=== PATIENT | female | born 1965 | race African-American/Black ===

== ENCOUNTER 2016-05-16 09:27 | Emergency (ER) | payer OTHER ==
[2016-05-16 09:52] VITALS: BP 132/86; PULSE 86; TEMP 97.9; BMI 30.1
[2016-05-16] MEDS: ALBUTEROL SO4 2.5/IPRATROPIUM 0.5 INH SOL 3 ML VIAL.NEB. NEB SCH ×3 (11:00→11:53)
[2016-05-16] MEDS ORDERED: predniSONE 20 MG TABLET (UD) PO ONE (12:14)
[2016-05-16] MEDS ORDERED: predniSONE 20 MG TABLET (UD) ONE (12:18)
--- NOTE | 2016-05-16 12:48 | PDOC ---
History of Present Illness - General Chief Complaint: Asthma Stated Complaint: SOB Time Seen by Provider: 05/16/16 10:42 History Source: Patient Exam Limitations: No Limitations - History of Present Illness Initial Comments: 05/16/16 12:42 51 yr female with c/o asthma attack. no history of intubations or hospitalizations. . non smoker. Pt states the weather change has brought on her asthma. 05/16/16 17:02 Past History - Past Medical History Allergies/Adverse Reactions: Allergies Allergy/AdvReac Type Severity Reaction Status Date / Time codeine [Codeine] Allergy Hives Verified 05/16/16 09:48 Home Medications: Ambulatory Orders Salmeterol/Fluticasone [Advair 250Mcg/50Mcg -] 1 inh PO BID 12/16/11 Albuterol Sulfate [Proair Hfa -] 2 inh PO PRN PRN #0 hfa.aer.ad 06/21/13 Albuterol 2.5/Ipratropium 0.5 [Duoneb -] 1 amp NEB Q15M #30 amp 05/16/16 Albuterol Sulfate Inhaler - [Ventolin Hfa Inhaler -] 1 - 2 inh PO Q4H #1 inhaler 05/16/16 Prednisone [Deltasone -] 40 mg PO DAILY #10 tablet 05/16/16 Anemia: Yes Asthma: Yes Cancer: No Cardiac Disorders: No CVA: No COPD: No CHF: No Dementia: No Diabetes: No GI Disorders: No Disorders: No HTN: No Hypercholesterolemia: No Liver Disease: No Seizures: No Thyroid Disease: No - Surgical History Abdominal Surgery: Yes (lt ovary cyst) Appendectomy: No Cardiac Surgery: No Cholecystectomy: No Lung Surgery: No Neurologic Surgery: Yes (neck surgery) Orthopedic Surgery: No - Immunization History Immunization Up to Date: Yes - Psycho/Social/Smoking Cessation Hx Anxiety: No Suicidal Ideation: No Smoking Status: No Smoking History: Never smoked Have you smoked in the past 12 months: No Number of Cigarettes Smoked Daily: 0 Cigars Per Day: 0 Information on smoking cessation initiated: No Hx Alcohol Use: No Drug/Substance Use Hx: No Substance Use Type: None Hx Substance Use Treatment: No Respiratory Specific PMHX - Complaint Specific PMHX Bronchitis: Yes Review of Systems - Review of Systems Able to Perform ROS?: Yes Is the patient limited Barbadian proficient: No Constitutional: No: Symptoms Reported HEENTM: No: Symptoms Reported Respiratory: Yes: Symptoms reported, See HPI, Cough Cardiac (ROS): No: Symptoms Reported ABD/GI: No: Symptoms Reported : No: Symptoms Reported Musculoskeletal: No: Symptoms Reported Integumentary: No: Symptoms Reported Neurological: No: Symptoms reported *Physical Exam - Vital Signs Last Vital Signs Temp Pulse Resp BP Pulse Ox 97.9 F 86 18 132/86 100 05/16/16 09:49 05/16/16 09:49 05/16/16 09:49 05/16/16 09:49 05/16/16 09:49 - Physical Exam General Appearance: Yes: Nourished, Appropriately Dressed HEENT: positive: EOMI, MARIJA, Normal ENT Inspection, TMs Normal, Pharynx Normal Neck: positive: Supple. negative: Tender Respiratory/Chest: positive: Lungs Clear, Normal Breath Sounds, Wheezing. negative: Chest Tender Cardiovascular: positive: Regular Rhythm, Regular Rate Gastrointestinal/Abdominal: positive: Normal Bowel Sounds, Soft Musculoskeletal: positive: Normal Inspection Extremity: positive: Normal Capillary Refill, Normal Inspection, Normal Range of Motion Integumentary: positive: Normal Color, Dry, Warm Neurologic: positive: Fully Oriented, Alert, Normal Mood/Affect, Normal Response , Motor Strength 5/5 ED Treatment Course - Medications Given in the ED: ED Medications Discontinued Medications Generic Name Dose Route Start Last Admin Trade Name Freq PRN Reason Stop Dose Admin Albuterol/Ipratropium 1 amp 05/16/16 11:00 05/16/16 11:53 Duoneb - NEB 05/16/16 11:31 1 amp Q15M [place] Administration Prednisone 60 mg 05/16/16 12:14 05/16/16 12:16 Deltasone - PO 05/16/16 12:15 60 mg ONCE ONE Administration Medical Decision Making - Medical Decision Making 05/16/16 17:03 cc: asthma attack wheezing speaking full sentences no distress wheezing expiratory *DC/Admit/Observation/Transfer Diagnosis at time of Disposition: Asthma, moderate - Discharge Dispostion Disposition: HOME Condition at time of disposition: Improved - Prescriptions Prescriptions: Prednisone [Deltasone -] 40 mg PO DAILY #10 tablet Albuterol 2.5/Ipratropium 0.5 [Duoneb -] 1 amp NEB Q15M #30 amp Albuterol Sulfate Inhaler - [Ventolin Hfa Inhaler -] 1 - 2 inh PO Q4H #1 inhaler - Referrals Referrals: Radha Sheehan MD [Primary Care Provider] - - Patient Instructions Additional Instructions: drink pleanty of fluids to stay hydrated follow with your doctor in 2-3 days next dose of prednisone tomorrow morning - Post Discharge Activity Work/School Note: Back to Work
== END 2016-05-16 12:55 | disposition home or self-care (01) ==
LOC: JERFT 09:27
PROC: 3E0F7GC Introduction of Other Therapeutic Substance into Respiratory Tract, Via Natural or Artificial Opening (ICD-10-PCS; principal; 2016-05-16)
DX: J45.41 Moderate persistent asthma with (acute) exacerbation (principal)
CPT/HCPCS: 94640; 99281-25

== ENCOUNTER 2017-05-19 10:43 | Emergency (ER) | payer OTHER ==
[2017-05-19 11:52] VITALS: BP 125/71; PULSE 88; TEMP 98.3; BMI 33.8
== END 2017-05-19 18:11 | disposition left against medical advice (07) ==
LOC: JER 10:43
DX: Z53.21 Procedure and treatment not carried out due to patient leaving prior to being seen by health care provider (principal)
CPT/HCPCS: 99281-25

== ENCOUNTER 2017-07-12 20:49 | Emergency (ER) | payer OTHER ==
[2017-07-12 20:55] VITALS: BMI 33.5
[2017-07-12] MEDS ORDERED: diazePAM 5 MG TABLET PO ONE (21:48)
[2017-07-12] MEDS ORDERED: IBUPROFEN 600 MG TABLET (FP) PO ONE ×2 (21:48→21:55)
--- NOTE | 2017-07-12 21:48 | PDOC ---
History of Present Illness - General Chief Complaint: Pain Stated Complaint: NECK PAIN Time Seen by Provider: 07/12/17 21:04 History Source: Patient - History of Present Illness Initial Comments: 07/12/17 21:49 52 year old female c/o left sided neck pain worse with movement x1 day.patient unsure of straining muscle. denies trauma/ injury. No cervical tenderness. no numbness of tingling to the arms. no breathing difficulty reported . patient reports pain relief with ibuprofen at home. History of cervical spinal surgery Past History - Past Medical History Allergies/Adverse Reactions: Allergies Allergy/AdvReac Type Severity Reaction Status Date / Time codeine [Codeine] Allergy Hives Verified 07/12/17 20:52 Home Medications: Ambulatory Orders Salmeterol/Fluticasone [Advair 250Mcg/50Mcg -] 1 inh PO BID 12/16/11 Albuterol Sulfate [Proair Hfa -] 2 inh PO PRN PRN #0 hfa.aer.ad 06/21/13 Albuterol 2.5/Ipratropium 0.5 [Duoneb -] 1 amp NEB Q15M #30 amp 05/16/16 Albuterol Sulfate Inhaler - [Ventolin Hfa Inhaler -] 1 - 2 inh PO Q4H #1 inhaler 05/16/16 Cyclobenzaprine HCl [Flexeril -] 10 mg PO TID PRN #21 tablet 07/12/17 Anemia: Yes Asthma: Yes Cancer: No Cardiac Disorders: No CVA: No COPD: Yes CHF: No Dementia: No Diabetes: No GI Disorders: No Disorders: No HTN: No Hypercholesterolemia: No Liver Disease: No Seizures: No Thyroid Disease: No - Surgical History Abdominal Surgery: Yes (lt ovary cyst) Appendectomy: No Cardiac Surgery: No Cholecystectomy: No Lung Surgery: No Neurologic Surgery: Yes (neck surgery) Orthopedic Surgery: No - Immunization History Immunization Up to Date: Yes - Suicide/Smoking/Psychosocial Hx Smoking Status: No Smoking History: Never smoked Have you smoked in the past 12 months: No Number of Cigarettes Smoked Daily: 0 Cigars Per Day: 0 Hx Alcohol Use: No Drug/Substance Use Hx: No Substance Use Type: None Hx Substance Use Treatment: No *Physical Exam - Vital Signs Last Vital Signs Temp Pulse Resp BP Pulse Ox 98.1 F 99 H 18 149/76 99 07/12/17 20:54 07/12/17 20:54 07/12/17 20:54 07/12/17 20:54 07/12/17 20:54 - Physical Exam General Appearance: Yes: Appropriately Dressed Neck: positive: Tender lateral (right ). negative: Lymphadenopathy (R), Lymphadenopathy (L) Respiratory/Chest: positive: Lungs Clear, Normal Breath Sounds Cardiovascular: positive: Regular Rhythm, Regular Rate Vascular Pulses: Carotid (R): 2+, Carotid (L): 2+ Extremity: positive: Normal Capillary Refill, Normal Inspection, Normal Range of Motion Integumentary: positive: Normal Color, Dry, Warm Neurologic: positive: Fully Oriented, Alert, Normal Mood/Affect Medical Decision Making - Medical Decision Making 07/12/17 21:54 Neck strain P: Muscle relaxer NSAID Ibuprofen *DC/Admit/Observation/Transfer Diagnosis at time of Disposition: Neck muscle spasm - Discharge Dispostion Disposition: HOME - Prescriptions Prescriptions: Cyclobenzaprine HCl [Flexeril -] 10 mg PO TID PRN #21 tablet PRN Reason: Muscle Spasms - Referrals Referrals: Loraine Simms [Primary Care Provider] - - Patient Instructions Printed Discharge Instructions: Muscle Strain Additional Instructions: take ibuprofen every 6 hours with food as needed for pain. take flexeril as prescribed. follow up with your doctor as soon as possible. return to the ER if symptoms worsen. - Post Discharge Activity
[2017-07-12] MEDS ORDERED: diazePAM 5 MG TABLET ONE (21:56)
--- NOTE | 2017-07-12 23:06 | PDOC ---
*Physical Exam - Vital Signs Last Vital Signs Temp Pulse Resp BP Pulse Ox 98.1 F 99 H 18 149/76 99 07/12/17 20:54 07/12/17 20:54 07/12/17 20:54 07/12/17 20:54 07/12/17 20:54 ED Treatment Course - Medications Given in the ED: ED Medications Discontinued Medications Generic Name Dose Route Start Last Admin Trade Name Freq PRN Reason Stop Dose Admin Diazepam 5 mg 07/12/17 21:48 07/12/17 22:00 Valium - PO 07/12/17 21:49 5 mg ONCE ONE Administration Ibuprofen 600 mg 07/12/17 21:48 07/12/17 22:00 Motrin - PO 07/12/17 21:49 600 mg ONCE ONE Administration Medical Decision Making - Medical Decision Making 07/12/17 23:06 agree with care from DESTIN Jennings *DC/Admit/Observation/Transfer Diagnosis at time of Disposition: Neck muscle spasm - Discharge Dispostion Disposition: HOME - Prescriptions Prescriptions: Cyclobenzaprine HCl [Flexeril -] 10 mg PO TID PRN #21 tablet PRN Reason: Muscle Spasms - Referrals Referrals: Loraine Simms [Primary Care Provider] - - Patient Instructions Printed Discharge Instructions: Muscle Strain Additional Instructions: take ibuprofen every 6 hours with food as needed for pain. take flexeril as prescribed. follow up with your doctor as soon as possible. return to the ER if symptoms worsen. - Post Discharge Activity
[2017-07-12 23:24] VITALS: BP 140/70; PULSE 86; TEMP 98
== END 2017-07-12 23:15 | disposition home or self-care (01) ==
LOC: JERFT 20:49 → JER 20:49
DX: M62.838 Other muscle spasm (principal); J44.9 Chronic obstructive pulmonary disease, unspecified
CPT/HCPCS: 99282-25

== ENCOUNTER 2018-02-05 09:55 | Emergency (ER) | payer SELFPAY ==
[2018-02-05 09:59] VITALS: BP 115/59; PULSE 82; TEMP 98.6; BMI 33.6
[2018-02-05] MEDS ORDERED: KETOROLAC TROMETHAMINE 60 MG/2 ML VIAL IM ONE (11:25)
--- NOTE | 2018-02-05 11:25 | PDOC ---
History of Present Illness - General Chief Complaint: Back Pain Stated Complaint: BACK PAIN Time Seen by Provider: 02/05/18 11:14 History Source: Patient, Family Exam Limitations: No Limitations - History of Present Illness Initial Comments: 02/05/18 11:29 Patient came for persistent low back pain. Has been seen in the past for same, and has also had a cervical fusion for disc disease of cervical spine 6 years ago. 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 the causes significant trouble to her low back and this spasm with radiating pain to the anterior aspect of left thigh Occurred: reports: yesterday Severity: reports: mild, moderate Pain Location: reports: back Modifying Factors: improves with: None Loss of Consciousness: no loss of consciousness Associated Symptoms (Fall): denies symptoms Past History - Travel Traveled outside of the country in the last 30 days: No Close contact w/someone who was outside of country & ill: No - Past Medical History Allergies/Adverse Reactions: Allergies Allergy/AdvReac Type Severity Reaction Status Date / Time codeine [Codeine] Allergy Hives Verified 02/05/18 09:56 Home Medications: Ambulatory Orders Salmeterol/Fluticasone [Advair 250Mcg/50Mcg -] 1 inh PO BID 12/16/11 Albuterol Sulfate [Proair Hfa -] 2 inh PO PRN PRN #0 hfa.aer.ad 06/21/13 Cyclobenzaprine HCl 10 mg PO Q8H PRN #14 tablet 02/05/18 Metformin HCl [Glucophage] 500 mg PO DAILY 02/05/18 Naproxen [Naprosyn -] 500 mg PO BID #30 tablet 02/05/18 Anemia: Yes Asthma: Yes Cancer: No Cardiac Disorders: No CVA: No COPD: Yes CHF: No Dementia: No Diabetes: No GI Disorders: No Disorders: No HTN: No Hypercholesterolemia: No Liver Disease: No Seizures: No Thyroid Disease: No - Surgical History Abdominal Surgery: Yes (lt ovary cyst) Appendectomy: No Cardiac Surgery: No Cholecystectomy: No Lung Surgery: No Neurologic Surgery: Yes (neck surgery) Orthopedic Surgery: No - Immunization History Immunization Up to Date: Yes - Suicide/Smoking/Psychosocial Hx Smoking Status: No Smoking History: Never smoked Have you smoked in the past 12 months: No Number of Cigarettes Smoked Daily: 0 Cigars Per Day: 0 Information on smoking cessation initiated: No Hx Alcohol Use: No Drug/Substance Use Hx: No Substance Use Type: None Hx Substance Use Treatment: No Review of Systems - Review of Systems Able to Perform ROS?: Yes Is the patient limited Romansh proficient: Yes Constitutional: Yes: Symptoms Reported, See HPI, Malaise Respiratory: Yes: Symptoms reported Musculoskeletal: Yes: Symptoms Reported, See HPI, Back Pain, Muscle Pain Integumentary: Yes: See HPI. No: Symptoms Reported All Other Systems: Reviewed and Negative *Physical Exam - Vital Signs Last Vital Signs Temp Pulse Resp BP Pulse Ox 98.6 F 82 18 115/59 L 100 02/05/18 09:57 02/05/18 09:57 02/05/18 09:57 02/05/18 09:57 02/05/18 09:57 - Physical Exam General Appearance: Yes: Nourished, Appropriately Dressed, Apparent Distress, Mild Distress HEENT: positive: EOMI, MARIJA, Normal ENT Inspection, TMs Normal, Pharynx Normal Neck: positive: Tender, Supple Respiratory/Chest: positive: Lungs Clear Gastrointestinal/Abdominal: positive: Soft. negative: Tender Musculoskeletal: positive: Normal Inspection, Muscle Spasm (tight tender musculature to the lower paravertebral spinous area, no truce spine pain, no crepitus or step-offs.). 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, Fully Oriented, Alert, Normal Mood/ Affect, Normal Response, Motor Strength 5/5 Progress Note - Progress Note Progress Note: Back strain, we'll treat with NSAIDs and cyclobenzaprine *DC/Admit/Observation/Transfer Diagnosis at time of Disposition: Low back strain Qualifiers: Encounter type: initial encounter Qualified Code(s): S39.012A - Strain of muscle, fascia and tendon of lower back, initial encounter - Discharge Dispostion Disposition: HOME Condition at time of disposition: Stable Decision to Admit order: No - Referrals Referrals: Carmen Loredo MD [Primary Care Provider] - - Patient Instructions Printed Discharge Instructions: DI for Low Back Pain Additional Instructions: Rest, no heavy lifting or exercise until pain is resolved Hot soaks to neck and low back as often as possible/hot showers or Jacuzzis No massage or therapy until spasm is gone Continue Naprosyn 500 mg tablet, 1 tablet every 12 hours for the next 3 days then as needed for pain and swelling Cyclobenzaprine 1-10mg every 8 hours as needed for spasm If not significant improvement within 24 hours with medication and rest regime, followup with private physician for change in medications and /or therapy. - Post Discharge Activity Forms/Work/School Notes: Back to Work
[2018-02-05] MEDS ORDERED: KETOROLAC TROMETHAMINE 60 MG/2 ML VIAL ONE (11:29)
== END 2018-02-05 11:40 | disposition home or self-care (01) ==
LOC: JERFT 09:55
PROC: 3E0233Z Introduction of Anti-inflammatory into Muscle, Percutaneous Approach (ICD-10-PCS; principal; 2018-02-05)
DX: S39.012A Strain of muscle, fascia and tendon of lower back, initial encounter (principal); M62.830 Muscle spasm of back; X50.1XXA Overexertion from prolonged static or awkward postures, initial encounter; Y93.89 Activity, other specified; Y92.89 Other specified places as the place of occurrence of the external cause; Y99.8 Other external cause status; J44.9 Chronic obstructive pulmonary disease, unspecified; J45.909 Unspecified asthma, uncomplicated
CPT/HCPCS: 99281-25

== ENCOUNTER 2018-04-14 11:22 | Emergency (ER) | payer SELFPAY ==
[2018-04-14 11:29] VITALS: BP 128/75; PULSE 104; TEMP 98.1; BMI 32.9
--- NOTE | 2018-04-14 12:09 | PDOC ---
History of Present Illness - General Chief Complaint: Abscess Boil Stated Complaint: ABSCESS BOIL Time Seen by Provider: 04/14/18 11:44 History Source: Patient Exam Limitations: No Limitations - History of Present Illness Initial Comments: 04/14/18 12:04 53-year-old female with history of diabetes presents to the ED with 4 day history of a painful red swollen lump to the back of her neck that is now causing soreness and mild neck stiffness. Patient states BGM this morning was 181 and denies any fever or chills. Patient states similar about 4 years ago that she was able to manage with warm soaks and no medical intervention. Patient states attempted warm soaks for the past 2 days and had noted it to worsen today and so decided come to the ER. Timing/Duration: getting worse Severity: moderate Associated Symptoms: reports: other Past History - Travel Traveled outside of the country in the last 30 days: No - Past Medical History Allergies/Adverse Reactions: Allergies Allergy/AdvReac Type Severity Reaction Status Date / Time codeine [Codeine] Allergy Hives Verified 04/14/18 11:28 Home Medications: Ambulatory Orders NK [No Known Home Medication] 04/14/18 Anemia: Yes Asthma: Yes Cancer: No Cardiac Disorders: No CVA: No COPD: Yes CHF: No Dementia: No Diabetes: Yes (niddm) GI Disorders: No Disorders: No HTN: No Hypercholesterolemia: No Liver Disease: No Seizures: No Thyroid Disease: No - Surgical History Abdominal Surgery: Yes (lt ovary cyst) Appendectomy: No Cardiac Surgery: No Cholecystectomy: No Lung Surgery: No Neurologic Surgery: Yes (neck surgery) Orthopedic Surgery: No - Immunization History Immunization Up to Date: Yes - Suicide/Smoking/Psychosocial Hx Smoking Status: No Smoking History: Never smoked Have you smoked in the past 12 months: No Number of Cigarettes Smoked Daily: 0 Cigars Per Day: 0 Hx Alcohol Use: No Drug/Substance Use Hx: No Substance Use Type: None Hx Substance Use Treatment: No Patient Lives Alone: No Lives with/in: spouse/SO Review of Systems - Review of Systems Able to Perform ROS?: Yes Constitutional: No: Symptoms Reported HEENTM: No: Symptoms Reported Respiratory: No: Symptoms reported Cardiac (ROS): No: Symptoms Reported ABD/GI: No: Symptoms Reported : No: Symptoms Reported Musculoskeletal: Yes: Muscle Pain Integumentary: Yes: Erythema, Lumps Neurological: No: Symptoms reported Endocrine: No: Symptoms Reported *Physical Exam - Vital Signs Last Vital Signs Temp Pulse Resp BP Pulse Ox 98.1 F 104 H 20 128/75 97 04/14/18 11:24 04/14/18 11:24 04/14/18 11:24 04/14/18 11:24 04/14/18 11:24 - Physical Exam General Appearance: Yes: Nourished, Appropriately Dressed. No: Apparent Distress Neck: positive: Supple. negative: Lymphadenopathy (R), Lymphadenopathy (L), Rigidity Respiratory/Chest: positive: Lungs Clear, Normal Breath Sounds. negative: Chest Tender, Respiratory Distress, Accessory Muscle Use Cardiovascular: positive: Regular Rhythm, Tachycardia. negative: Murmur Extremity: positive: Normal Capillary Refill. negative: Pedal Edema Integumentary: positive: Other (Noted 4 x 4 cm erythematous fluctuant mass to the base of her neck over C6-C7 with mild erythema surrounding mass. ) Neurologic: positive: Motor Strength 5/5 (ambulatory) Moderate Sedation - Procedure Monitoring Vital Signs: Procedure Monitoring Vital Signs Temperature 98.1 F 04/14/18 11:24 Pulse Rate 104 H 04/14/18 11:24 Respiratory Rate 20 04/14/18 11:24 Blood Pressure 128/75 04/14/18 11:24 O2 Sat by Pulse Oximetry (%) 97 04/14/18 11:24 Procedures - Incision and Drainage I&D Site: Bilateral: Other Betadine cleansed: Yes Anesthesia: 1% Lidocaine Volume(ml): 2 Blade Size: 11 Attempts: 2 Iodinated Packin/2 in Complications: none Dressing: Yes ED Treatment Course - LABORATORY CBC & Chemistry Diagram: 04/14/18 12:11 04/14/18 12:11 - RADIOLOGY Radiology Studies Ordered: Category Date Time Status SOFT TISSUE NECK CT WITH CONTR [CT] Stat CT Scan 04/14/18 11:48 Ordered Medical Decision Making - Medical Decision Making 04/14/18 12:00 Chief complaint: Tender red mass in posterior neck. Patient with history of diabetes no fever no history of MRSA Exam: Fluctuant abscess over C6-C7 patient tachycardic Plan: Patient concerning for sepsis and electrolyte derangement. Patient also concerning for deep tissue abscess/spinal involvement. Patient ordered for CBC, comp, lactic acid, CT of the soft tissue neck with contrast 04/14/18 13:08 Laboratory Tests 04/14/18 12:11 Lactic Acid 1.3 04/14/18 13:08 Laboratory Tests 04/14/18 12:11 WBC 7.2 Hgb 14.4 Hct 41.3 Plt Count 206 Absolute Neuts (auto) 4.0 04/14/18 13:43 Laboratory Tests 04/14/18 12:11 Sodium 139 Potassium 4.3 Chloride 104 Carbon Dioxide 29 Anion Gap 6 L BUN 9 Creatinine 0.9 Random Glucose 161 H Calcium 9.2 Total Bilirubin 0.6 AST 25 ALT 45 Alkaline Phosphatase 88 Total Protein 7.9 Albumin 3.9 04/14/18 16:29 CT of the tests CT of the soft tissue neck shows a fluid collection measuring 2.8 x 2.2 x 2.2 with internal foci of air with mild adjacent inflammatory changes seen. There is no involvement of the muscles of the posterior neck. 04/14/18 16:49 IND done with packing placed. Patient to return in 2 days for wound check. Patient will likely benefit from a surgical consult. Patient given antibiotics while culture sent *DC/Admit/Observation/Transfer Diagnosis at time of Disposition: Infected sebaceous cyst - Discharge Dispostion Disposition: HOME Condition at time of disposition: Good - Referrals Referrals: Jovani Means MD [Primary Care Provider] - Gabino Spears MD [Staff Physician] - - Patient Instructions Printed Discharge Instructions: DI for Incision and Drainage of a Skin Abscess Additional Instructions: Please take antibiotics as prescribed. Please return here for a wound check in 2 days. You will likely benefit from a surgical consult which is enclosed. Please apply warm soaks as much as you can tolerate for the next 72 hours to promote drainage - Post Discharge Activity
[2018-04-14 12:39] LABS: BASO % 0.4 % (0-2.0); EOS % 3.7 % (0-4.5); HEMATOCRIT 41.3 % (32.4-45.2); HEMOGLOBIN 14.4 GM/dL (10.7-15.3); LYMPH % 28.7 % (8-40); MCH 30.3 pg (25.7-33.7); MCHC 34.8 g/dl (32.0-36.0); MEAN CELL VOLUME 86.9 fl (80-96); MEAN PLT VOLUME 9.4 fl (7.5-11.1); MONO % 11.2 % (3.8-10.2); PLATELET COUNT 206 K/MM3 (134-434); RBC 4.75 M/mm3 (3.60-5.2); RDW 13.5 % (11.6-15.6); WHITE BLOOD COUNT 7.2 K/mm3 (4.0-10.0)
[2018-04-14 13:21] LABS: ALBUMIN 3.9 g/dl (3.4-5.0); ALK PHOS 88 U/L (45-117); ANION GAP 6 MMOL/L (8-16); BILIRUBIN,TOTAL 0.6 mg/dL (0.2-1); BLOOD UREA NITROGEN 9 mg/dL (7-18); CALCIUM 9.2 mg/dL (8.5-10.1); CHLORIDE 104 mmol/L (98-107); CO2 29 mmol/L (21-32); CREATININE 0.9 mg/dL (0.55-1.3); GLUCOSE,RANDOM 161 mg/dL (74-106); POTASSIUM 4.3 mmol/L (3.5-5.1); SGOT/AST 25 U/L (15-37); SGPT/ALT 45 U/L (13-61); SODIUM 139 mmol/L (136-145); TOT PROT 7.9 g/dl (6.4-8.2)
== END 2018-04-14 16:58 | disposition home or self-care (01) ==
LOC: JERFT 11:22
PROC: 0HQ6XZZ Repair Back Skin, External Approach (ICD-10-PCS; principal; 2018-04-14)
PROC: 0H96XZZ Drainage of Back Skin, External Approach (ICD-10-PCS; 2018-04-14)
DX: L02.212 Cutaneous abscess of back [any part, except buttock and flank] (principal)
CPT/HCPCS: 36415; 70491-TC; 80053; 83605; 85025; 87070; 87205; 99283-25

== ENCOUNTER 2019-06-03 11:23 | Day surgery (SDC) | payer OTHER ==
[2019-05-30 17:51] VITALS: BMI 31.8
--- NOTE | 2019-06-03 12:51 | HP ---
History & Physical Update - History History: No Change - Physical Physical: No Change - Assessment Assessment: No Change - Plan Plan: No Change
[2019-06-03] MEDS ORDERED: MIDAZOLAM HCL 2 MG/2 ML SINGLE DOSE VIAL ONE (13:11)
[2019-06-03] MEDS ORDERED: LIDOCAINE HCL/PF 2% SDV 5ML VIAL ONE (13:12)
[2019-06-03] MEDS ORDERED: DEXAMETHASONE SOD PHOSPHATE 4 MG/1 ML VIAL ONE (13:12)
[2019-06-03] MEDS ORDERED: KETOROLAC TROMETHAMINE 30 MG/1 ML VIAL ONE (13:12)
[2019-06-03] MEDS ORDERED: PROPOFOL 20 ML ONE (13:13)
--- NOTE | 2019-06-03 14:37 | OP ---
Operative Note - Note: Operative Date: 06/03/19 (dic # [id number]) Pre-Operative Diagnosis: AUB Operation: Diagnostic hysteroscopy, polypectomy, EM curettage Findings: see dictation Implants: none Post-Operative Diagnosis: Same as Pre-op Surgeon: Jase Grace Anesthesia: MAC Specimens Removed: EM polyps, EM curetting Estimated Blood Loss (mls): 5 (minimal) Drains, Volume Out (mls): 300 (fluid deficit)
[2019-06-03] MEDS ORDERED: ONDANSETRON 4 MG/2 ML VIAL IVPUSH PRN (15:45)
[2019-06-03] MEDS ORDERED: LACTATED RINGERS SOLUTION 1,000 ML IV SCH (15:45)
[2019-06-03 18:28] VITALS: TEMP 98
[2019-06-03 18:31] VITALS: BP 126/68; PULSE 82
--- NOTE | 2019-06-04 09:08 | OP ---
DATE OF OPERATION: 06/03/2019 PREOPERATIVE DIAGNOSIS: Abnormal uterine bleeding, suspect endometrial polyp. POSTOPERATIVE DIAGNOSIS: Abnormal uterine bleeding, suspect endometrial polyp. PROCEDURE: Diagnostic hysteroscopy, polypectomy, endometrial curettage. SURGEON: Hardeep Armendariz MD ANESTHESIA: MAC. INTRAVENOUS FLUIDS: Per anesthesia. URINE OUTPUT: None. ESTIMATED BLOOD LOSS: Minimal. FLUID DEFICIT: 300 mL. FINDINGS: Atrophic external genitalia and vaginal mucosa. Cervix short, slightly dilated. Endocervical canal consistent with normal anatomy. The endometrial finding was 3 moderate-sized polyps encountered anteriorly and posterior fibroid slightly impinging into the endometrial cavity, approximately 3 x 3 cm. PROCEDURE: The patient was taken to the operating room where anesthesia was found to be adequate. She was then prepped and draped in the normal sterile fashion. Appropriate timeout took place. Metal retractors were utilized to visualize the anterior aspect of the cervix which was grasped with a Flor tenaculum. The cervix slightly dilated to accommodate the hysteroscope. The hysteroscope was advanced to the fundus. Previously mentioned findings noted. The resectoscope was assembled. Polypectomy under constant visualization took place without difficulty. Following this the resectoscope was removed and systematic curetting of the endometrial cavity took place. Specimen sent to Pathology. Secondary inspection with the resectoscope revealed adequate procedure. It is to be noted that the posterior fibroid was slightly shaved off with the resectoscope at its impinging aspect into the endometrial cavity. All instruments were retrieved from the vagina. No active bleeding was noted from the os nor the tenaculum site. Procedure was concluded. Patient in stable condition. All instrument counts were reported as correct x2 by the staff. HARDEEP ARMENDARIZ MD [id number] MTDD
--- NOTE | 2019-06-05 17:52 | PATH ---
Surgical Pathology Report Patient Name: LEON ROBLEDO [facility]. Rec. #: [id number] /Age/Gender: 1965 (Age: 54) / F Account: [id number] Location: [facility] SURGICAL Taken: 06/03/2019 Received: 06/04/2019 Reported: 06/05/2019 Physicians: Jase Grace MD Specimen(s) Received A: ENDOMETRIAL POLYP B: ENDOMETRIAL CURETTINGS Clinical History Endometrial polyp Final Diagnosis A. ENDOMETRIAL POLYP, EXCISION: FRAGMENTS OF ENDOMETRIAL POLYP. SQUAMOUS EPITHELIUM WITH NO SIGNIFICANT PATHOLOGIC CHANGE. B. ENDOMETRIAL CURETTINGS: FRAGMENT OF ENDOMETRIAL POLYP. SEPARATE WEAKLY PROLIFERATIVE ENDOMETRIUM. SEPARATE ENDOCERVICAL GLANDS AND SQUAMOUS EPITHELIUM WITH NO SIGNIFICANT PATHOLOGIC CHANGE. Electronically Signed Nadeem Jackson M.D. Gross Description A. Received in formalin labeled "endometrial polyp," is a 1.7 x 1.4 x 0.2 cm aggregate of lopez soft tissue fragments admixed with blood clot. The formalin is filtered and the specimen is entirely submitted in one cassette. B. Received in formalin labeled "endometrial curettings," is a 2.0 x 1.5 x 0.3 cm aggregate of lopez-brown soft tissue fragments admixed with mucus. The formalin is filtered and the specimen is entirely submitted in one cassette. 06/04/2019 [facility]06/04/2019
== END 2019-06-03 17:35 | disposition home or self-care (01) ==
LOC: JASU-SURG 11:23
PROVIDERS: ATTEND Student in an Organized Health Care Education/Training Program
PROC: 0UDB7ZX Extraction of Endometrium, Via Natural or Artificial Opening, Diagnostic (ICD-10-PCS; 2019-06-03)
PROC: 0UJD8ZZ Inspection of Uterus and Cervix, Via Natural or Artificial Opening Endoscopic (ICD-10-PCS; 2019-06-03)
PROC: 0UB97ZX Excision of Uterus, Via Natural or Artificial Opening, Diagnostic (ICD-10-PCS; principal; 2019-06-03 13:00)
DX: N93.9 Abnormal uterine and vaginal bleeding, unspecified (principal); N84.0 Polyp of corpus uteri
CPT/HCPCS: 36415; 82962; 84703; 86850; 86900; 86901; 88305-TC; 94760

== ENCOUNTER 2020-01-03 21:37 | Emergency (ER) | payer OTHER ==
[2020-01-03 22:05] VITALS: BP 130/73; PULSE 83; TEMP 98; BMI 31.6
--- NOTE | 2020-01-03 22:40 | PDOC ---
History of Present Illness - General Chief Complaint: Injury Stated Complaint: NUMBNESS LH FINGERS Time Seen by Provider: 01/03/20 22:15 History Source: Patient Exam Limitations: No Limitations - History of Present Illness Initial Comments: 01/03/20 22:52 HISTORY OF PRESENT ILLNESS: 54-year-old woman with past medical history of diabetes, cervical spinal fusion who presents emergency department for evaluation of left elbow pain shooting to the fourth and fifth fingers of her left hand. Patient reports pain was sudden onset and intermittent over the past 2 to 3 weeks but is been consistent for the past 3 days. Patient denies any trauma, fevers, chills, decreased range of motion. Patient is right-hand dominant. No recent travel or sick contacts. PAST MEDICAL HISTORY: See HPI SURGICAL HISTORY: Denies ALLERGIES: Codeine REVIEW OF SYSTEMS General/Constitutional: Denies fever or chills. Denies weakness, weight change. HEENT: Denies change in vision. Denies ear pain or discharge. Denies sore throat. Cardiovascular: Denies chest pain or shortness of breath. Respiratory: Denies cough, wheezing, or hemoptysis. Gastrointestinal: Denies nausea, vomiting, diarrhea or constipation. Denies rectal bleeding. Genitourinary: Denies dysuria, frequency, or change in urination. Musculoskeletal: Denies joint or muscle swelling or pain. Denies neck or back pain. Skin and breasts: Denies rash or easy bruising. Neurologic: See HPI Psychiatric: Denies depression or anxiety. Endocrine: Denies increased thirst. Denies abnormal weight change. Hematologic/Lymphatic: Denies anemia, easy bleeding, or history of blood clots. Allergic/Immunologic: Denies hives or skin allergy. Denies latex allergy. PHYSICAL EXAM General Appearance: Well-appearing, appropriately dressed. No apparent distress, no intoxication. Neck: Supple. Trachea midline. No tenderness, rigidity, carotid bruit, stridor, lymphadenopathy, or thyromegaly. Respiratory/Chest: Lungs CTAB. No shortness of breath, chest tenderness, respiratory distress, accessory muscle use. No crackles, rales, rhonchi, stridor, wheezing, dullness Cardiovascular: RRR. S1, S2. No JVD, murmur, bradycardia, tachycardia. Vascular Pulses: Radial (R): 2+, radial (L): 2+ Lymphatic: No adenopathy, tenderness. Musculoskeletal/Extremities: Normal inspection. FROM of all extremities, normal capillary refill. Pelvis Stable. No CVA tenderness. No tenderness to extremities, pedal edema, swelling, erythema or deformity. Positive Tinel's test present to the left medial elbow. Neurologic: contracting engineer II-XII intact. Fully oriented, alert. Appropriate mood/affect. Motor strength 5/5. No appreciable EOM palsy, facial droop or sensory deficit. Past History - Medical History Allergies/Adverse Reactions: Allergies Allergy/AdvReac Type Severity Reaction Status Date / Time codeine [Codeine] Allergy Severe Hives Verified 01/03/20 22:01 Home Medications: Ambulatory Orders Fluticasone/Salmeterol [Advair 250-50 Diskus] 1 inh.kit IH BID 05/30/19 Metformin HCl [Glucophage] 1,000 mg PO BID 05/30/19 Ibuprofen [Advil -] 400 mg PO PRN PRN 06/03/19 Anemia: No Asthma: Yes Cancer: No Cardiac Disorders: No CVA: No COPD: No CHF: No Dementia: No Diabetes: Yes (niddm) GI Disorders: No Disorders: No HTN: No Hypercholesterolemia: No Liver Disease: No Seizures: No Thyroid Disease: No - Surgical History Abdominal Surgery: Yes (lt ovary cyst) Appendectomy: No Cardiac Surgery: No Cholecystectomy: No Lung Surgery: No Neurologic Surgery: Yes (neck surgery) Orthopedic Surgery: No - Reproductive History Is Patient Now?: No - Immunization History Immunization Up to Date: Yes - Psycho-Social/Smoking History Smoking Status: No Smoking History: Never smoked Have you smoked in the past 12 months: No Number of Cigarettes Smoked Daily: 0 Cigars Per Day: 0 - Substance Abuse Hx (Audit-C & DAST Scrn) How often the patient has a drink containing alcohol: Never Score: In Men: 4 or > Positive; In Women: 3 or > Positive: 0 Screen Result (Pos requires Nsg. Audit-10AR): Negative *Physical Exam - Vital Signs Last Vital Signs Temp Pulse Resp BP Pulse Ox 98 F 83 18 130/73 99 01/03/20 21:55 01/03/20 21:55 01/03/20 21:55 01/03/20 21:55 01/03/20 21:55 Medical Decision Making - Medical Decision Making 01/03/20 22:50 A/P: 55-year-old woman with left elbow pain shooting down to the fourth and fifth digit on the left hand Positive Tinel's test of the left elbow Full range of motion of the elbow with pronation, supination, flexion and extension. No symptoms proximal to the left elbow Given exam this is likely left ulnar neuropathy at the elbow. Discharge home with supportive treatment and recommendation for orthopedic evaluation if symptoms persist. I discussed the physical exam findings, ancillary test results and final diagnoses with the patient. I answered all of the patient's questions. The patient was satisfied with the care received and felt comfortable with the discharge plan and treatment plan. The patient will call their primary care physician within 24 hours to arrange follow-up and will return to the Emergency Department with any new, persistent or worsening symptoms. Portions of this note have been documented using voice recognition software. As a result, errors may occur in the contact lens edge buffer process. Effort has been made to correct all grammatical and contact lens edge buffer error, but some may have been missed which may produce sporadic inaccurate contact lens edge buffer or nonsensical phrases. Discharge - Discharge Information Problems reviewed: Yes Clinical Impression/Diagnosis: Ulnar neuropathy at elbow of left upper extremity Condition: Stable Disposition: HOME - Admission No - Follow up/Referral Referrals: Carmen Loredo MD [Primary Care Provider] - Miles Chris DO [Staff Physician] - - Patient Discharge Instructions Additional Instructions: Take Tylenol or Motrin to help treat pain. Follow invoice checker's instructions for appropriate dosage. Follow-up with your primary doctor for continued evaluation. Avoid leaning on her elbows as this may make the symptoms worse. You have been given a referral for an orthopedist. Call to schedule appointment if your symptoms continue. Return to the emergency department any new or worsening symptoms. Thank you very much for choosing us to provide your emergent healthcare needs. - Post Discharge Activity
[2020-01-03] MEDS ORDERED: NAPROXEN 500 MG TABLET PO ONE (22:41)
[2020-01-03] MEDS ORDERED: NAPROXEN 500 MG TABLET ONE (22:48)
== END 2020-01-03 22:53 | disposition home or self-care (01) ==
LOC: JERFT 21:37 → JER 21:37 → JERFT 22:53
DX: G56.21 Lesion of ulnar nerve, right upper limb (principal)
CPT/HCPCS: 99284-25